=== PATIENT | male | born 1955 | race Caucasian/White ===

== ENCOUNTER 2021-09-25 13:01 | Emergency (ER) | payer MEDICARE, BC ==
[~2021-09-25] VITALS: Ht 180.3 cm; Wt 82.5 kg
[~2021-09-25 13:01] MED LIST: METH-603 PO; PANT20TA2 PO
[2021-09-25 13:23] VITALS: BP 145/82
[2021-09-25] MEDS ORDERED: DOXYCYCLINE 100MG CAPSULE PO STA (15:12)
[2021-09-25] MEDS ORDERED: DOXY-411 PO (15:13)
--- NOTE | 2021-09-26 10:46 | NUR ---
PT'S CALLED STATING THAT PT WAS SEEN YESTERDAY AND THAT THEIR PHARMACY NEVER RECEIVED THE TRANSMITTED RX. [facility] IN [place] CALLED FOR DOXCYCLINE 100MG, 1 TAB PO, Q12H x10 DAYS #20, NO REFILS CALLED IN AT PT'S REQUEST.
== END 2021-09-25 15:20 | disposition home or self-care (01) ==
LOC: ER 13:01
DX: S90.31XA Contusion of right foot, initial encounter (principal); L03.115 Cellulitis of right lower limb; Z86.19 Personal history of other infectious and parasitic diseases; Z79.2 Long term (current) use of antibiotics; Z79.899 Other long term (current) drug therapy; W23.1XXA Caught, crushed, jammed, or pinched between stationary objects, initial encounter; Y93.89 Activity, other specified; Y92.89 Other specified places as the place of occurrence of the external cause; Y99.8 Other external cause status
CPT/HCPCS: 73630; 99283

== ENCOUNTER 2022-11-22 08:27 | Day surgery (SDC) | payer MEDICARE, BC ==
[~2022-11-22] VITALS: Ht 180.3 cm; Wt 81.8 kg
[2022-11-22 08:30] VITALS: BP 174/99
[2022-11-22] MEDS ORDERED: NO HOME MEDS (08:59)
[2022-11-22] MEDS ORDERED: LIDOcaine Viscous 15ml cup ONE (09:43)
[2022-11-22] MEDS ORDERED: MIDAZolam 1 MG/ML 5ML VIAL ONE (09:43)
[2022-11-22] MEDS ORDERED: fentaNYL/PF 50MCG/1 ML 2ML syringe ONE (09:43)
[2022-11-22 10:35] VITALS: BP 142/89
[2022-11-22 10:45] VITALS: BP 134/93
[2022-11-22 10:55] VITALS: BP 145/87
[2022-11-22 11:05] VITALS: BP 166/87
== END 2022-11-22 11:20 | disposition home or self-care (01) ==
LOC: GI LAB 08:27
PROVIDERS: ATTEND Specialist
DX: Z12.11 Encounter for screening for malignant neoplasm of colon (principal); K21.9 Gastro-esophageal reflux disease without esophagitis; K64.8 Other hemorrhoids; K74.60 Unspecified cirrhosis of liver; K22.2 Esophageal obstruction; B18.2 Chronic viral hepatitis C; K44.9 Diaphragmatic hernia without obstruction or gangrene; K21.00 Gastro-esophageal reflux disease with esophagitis, without bleeding; K22.70 Barrett's esophagus without dysplasia; Z79.899 Other long term (current) drug therapy; I85.00 Esophageal varices without bleeding; Z98.890 Other specified postprocedural states
CPT/HCPCS: 43239; 99153; G0121; G0500; J2250; J3010; J7030; Z7512; 45378; 88305; 99152; A4620